=== PATIENT | female | born 1980 | race African-American/Black ===

== ENCOUNTER 2022-04-25 15:15 | Observation (INO) | payer BC ==
[2022-04-25 18:43] LABS: HEMATOCRIT 21.3 % (32.4-45.2); MEAN PLT VOLUME 8.6 fl (7.5-11.1); PLATELET COUNT 386 10^3/uL (134-434); RBC 4.02 M/mm3 (3.60-5.2); RDW 25.3 % (11.6-15.6); WHITE BLOOD COUNT 4.9 K/mm3 (4.0-10.0)
[2022-04-25 18:44] LABS: MCH 13.8 pg (25.7-33.7)
[2022-04-25 18:47] LABS: HEMOGLOBIN 5.5 GM/dL (10.7-15.3)
[2022-04-25 18:48] LABS: ADD RBC MORPHOLOGY YES
[2022-04-25 18:49] LABS: INR 1.03 (0.83-1.09)
[2022-04-25 18:52] LABS: ACTIVATED PTT 29.9 SECONDS (25.2-36.5)
[2022-04-25 19:12] LABS: ALBUMIN 3.9 g/dl (3.4-5.0); BLOOD UREA NITROGEN 9.6 mg/dL (7-18); CALCIUM 8.6 mg/dL (8.5-10.1)
[2022-04-25 19:15] LABS: CREATININE 0.8 mg/dL (0.55-1.3)
[2022-04-25 19:17] LABS: BILIRUBIN,TOTAL 0.4 mg/dL (0.2-1); TOT PROT 7.9 g/dl (6.4-8.2)
[2022-04-25 19:42] LABS: ANISOCYTOSIS 3+; MACROCYTOSIS 0
[2022-04-25] MEDS ORDERED: ACETAMINOPHEN 325 MG TABLET (FP) PO PRN (20:58)
[2022-04-25] MEDS ORDERED: DOCUSATE SODIUM 100 MG CAPSULE (FP) PO PRN (20:58)
[2022-04-26 01:41] VITALS: BMI 38.1
[2022-04-26 07:37] LABS: HEMATOCRIT 24.9 % (32.4-45.2); HEMOGLOBIN 7.3 GM/dL (10.7-15.3); MCHC 29.6 g/dl (32.0-36.0); MEAN CELL VOLUME 60.5 fl (80-96); MEAN PLT VOLUME 8.8 fl (7.5-11.1); PLATELET COUNT 339 10^3/uL (134-434); RBC 4.11 M/mm3 (3.60-5.2); RDW 33.9 % (11.6-15.6); WHITE BLOOD COUNT 5.1 K/mm3 (4.0-10.0)
[2022-04-26 07:46] LABS: MCH 17.9 pg (25.7-33.7)
[2022-04-26 08:05] LABS: BLOOD UREA NITROGEN 8.6 mg/dL (7-18); CALCIUM 8.3 mg/dL (8.5-10.1)
[2022-04-26] MEDS ORDERED: ALBUTEROL SO4 2.5/IPRATROPIUM 0.5 INH SOL 3 ML VIAL.NEB. NEB PRN (08:06)
[2022-04-26 08:09] LABS: CREATININE 0.7 mg/dL (0.55-1.3)
[2022-04-26] MEDS ORDERED: CEFTRIAXONE 1 GM in DEXTROSE 5%-WATER - 50 ML IVPB SCH (10:00)
[2022-04-26] MEDS ORDERED: AZITHROMYCIN 500 MG TABLET PO SCH (10:00)
[2022-04-26 14:36] VITALS: BP 126/73; PULSE 68; RESP 18; TEMP 98.2
== END 2022-04-26 17:34 | disposition home or self-care (01) ==
LOC: JER 15:15 → JERBED 20:45 → UNDOADMOB 20:45 → INTOOBSV 20:45 → JERBED 23:42 → J6S 23:42 → JERBED 04-26 14:26
PROVIDERS: ADMIT Internal Medicine; ATTEND Internal Medicine
PROC: 3E03329 Introduction of Other Anti-infective into Peripheral Vein, Percutaneous Approach (ICD-10-PCS; principal; 2022-04-26)
PROC: 30233N1 Transfusion of Nonautologous Red Blood Cells into Peripheral Vein, Percutaneous Approach (ICD-10-PCS; 2022-04-26)
DX: D64.9 Anemia, unspecified (principal); N93.9 Abnormal uterine and vaginal bleeding, unspecified; D25.9 Leiomyoma of uterus, unspecified; E66.8 Other obesity; Z68.38 Body mass index [BMI] 38.0-38.9, adult; R06.2 Wheezing
CPT/HCPCS: 0241U-QW; 36415; 36430; 36511; 71046-TC-FY; 76830-TC; 80048; 80053; 84484; 84703; 85025; 85027; 85610; 85730; 86850; 86900; 86901; 86922; 93005; 93010; 93306-TC; 96365; 99285-25; G0378; P9038; P9058

== ENCOUNTER 2022-06-19 04:04 | Inpatient (IN) | payer BC ==
[2022-06-17 14:25] VITALS: BMI 37.9
[~2022-06-19 04:04] MED LIST: ceFAZolin SODIUM 1 GM VIAL IVPB ONE
[2022-06-19] MEDS ORDERED: CEFAZOLIN SODIUM 2 GM in DEXTROSE 5%-WATER 100 ML IVPB ONE (07:00)
[2022-06-19] MEDS ORDERED: ceFAZolin SODIUM 1 GM VIAL ONE ×2 (07:09→08:35)
[2022-06-19] MEDS ORDERED: PROPOFOL 20 ML ONE (07:18)
[2022-06-19] MEDS ORDERED: LIDOCAINE HCL/PF 2% SDV 5ML VIAL ONE (07:18)
[2022-06-19] MEDS ORDERED: MIDAZOLAM HCL 2 MG/2 ML SINGLE DOSE VIAL ONE (07:19)
[2022-06-19] MEDS ORDERED: ROCURONIUM BROMIDE 50 MG/5 ML SYRINGE ONE (07:19)
[2022-06-19] MEDS ORDERED: SUCCINYLCHOLINE CHLORIDE 200 MG/10 ML SYRINGE ONE (07:19)
[2022-06-19] MEDS ORDERED: TRANEXAMIC ACID 1000 MG/10 ML VIAL IVPUSH ONE (08:00)
[2022-06-19] MEDS ORDERED: ceFAZolin SODIUM 1 GM VIAL IVPB ONE (08:35)
[2022-06-19] MEDS ORDERED: DEXAMETHASONE SOD PHOSPHATE 4 MG/1 ML VIAL ONE (08:35)
[2022-06-19] MEDS ORDERED: KETOROLAC TROMETHAMINE 30 MG/1 ML VIAL ONE (09:45)
[2022-06-19] MEDS ORDERED: ONDANSETRON 4 MG/2 ML VIAL ONE (09:45)
[2022-06-19] MEDS ORDERED: NEOSTIGMINE METHYLSULFATE 0.5 MG/1 ML - 10 ML MDV ONE (09:46)
[2022-06-19] MEDS ORDERED: GLYCOPYRROLATE 0.2 MG/1 ML VIAL ONE (09:46)
[2022-06-19] MEDS ORDERED: ONDANSETRON 4 MG/2 ML VIAL IVPUSH PRN ×3 (10:41→10:45)
[2022-06-19] MEDS ORDERED: ACETAMINOPHEN 1000 MG/100 ML BAG IVPB ONE (10:41)
[2022-06-19] MEDS ORDERED: PROMETHAZINE HCL 25 MG/1 ML VIAL IVPB PRN (10:41)
[2022-06-19] MEDS ORDERED: DOCUSATE SODIUM 100 MG CAPSULE (FP) PO PRN (10:45)
[2022-06-19] MEDS ORDERED: oxyCODONE HCL 5 MG TABLET PO PRN ×2 (10:45)
[2022-06-19] MEDS ORDERED: BISACODYL 5 MG TABLET.DR (FP) PO PRN (10:45)
[2022-06-19] MEDS ORDERED: LACTATED RINGERS SOLUTION 1,000 ML IV SCH (10:45)
[2022-06-19] MEDS ORDERED: ACETAMINOPHEN 1000 MG/100 ML BAG IVPB SCH (10:51)
[2022-06-19] MEDS ORDERED: ALBUTEROL SO4 HFA INHALER IH PRN ×3 (10:53→11:55)
[2022-06-19] MEDS ORDERED: SODIUM CHLORIDE 1,000 ML IV SCH (11:00)
[2022-06-19] MEDS ORDERED: morphine CARPU-JECT 2 MG/1 ML DISP.SYRIN IVPUSH PRN (11:01)
[2022-06-19] MEDS: IBUPROFEN 800 MG/8 ML IJ IVPB SCH ×2 (13:57→20:58)
[2022-06-19 14:06] VITALS: RESP 18
[2022-06-19 14:27] LABS: HIV INTERPRETATION NEGATIVE (NEGATIVE)
[2022-06-19] MEDS ORDERED: CEFAZOLIN 1 GM in DEXTROSE 5%-WATER - 50 ML IVPB SCH (16:00)
[2022-06-19] MEDS: ACETAMINOPHEN 1000 MG/100 ML BAG IVPB SCH ×2 (16:14→23:18)
[2022-06-19 20:58] VITALS: TEMP 98.1
[2022-06-19] MEDS: SIMETHICONE 80 MG TAB.CHEW (FP) PO PRN (20:58)
[2022-06-19] MEDS ORDERED: diphenhydrAMINE HCL 25 MG CAPSULE (FP) PO PRN (21:20)
[2022-06-19] MEDS: CEFAZOLIN 1 GM in DEXTROSE 5%-WATER - 50 ML IVPB SCH (22:20)
[2022-06-20 05:27] VITALS: BP 108/68; PULSE 84
[2022-06-20] MEDS: ACETAMINOPHEN 1000 MG/100 ML BAG IVPB SCH (05:46)
[2022-06-20] MEDS: SIMETHICONE 80 MG TAB.CHEW (FP) PO PRN ×2 (05:48→10:03)
[2022-06-20] MEDS: CEFAZOLIN 1 GM in DEXTROSE 5%-WATER - 50 ML IVPB SCH (06:00)
[2022-06-20] MEDS: IBUPROFEN 800 MG/8 ML IJ IVPB SCH (06:20)
[2022-06-20 06:28] LABS: HEMATOCRIT 29.8 % (32.4-45.2); HEMOGLOBIN 9.4 GM/dL (10.7-15.3); MCHC 31.4 g/dl (32.0-36.0); MEAN CELL VOLUME 66.8 fl (80-96); MEAN PLT VOLUME 9.3 fl (7.5-11.1); PLATELET COUNT 291 10^3/uL (134-434); RBC 4.47 M/mm3 (3.60-5.2); WHITE BLOOD COUNT 9.5 K/mm3 (4.0-10.0)
[2022-06-20 06:41] LABS: POTASSIUM 4.1 mmol/L (3.5-5.1)
[2022-06-20 06:42] LABS: CALCIUM 8.5 mg/dL (8.5-10.1)
[2022-06-20 06:43] LABS: BLOOD UREA NITROGEN 6.8 mg/dL (7-18)
[2022-06-20 06:46] LABS: CREATININE 0.7 mg/dL (0.55-1.3)
[2022-06-20] MEDS ORDERED: ENOXAPARIN NA (PORCINE) 40 MG/0.4 ML DISP.SYRIN SQ SCH (10:00)
[2022-06-20] MEDS ORDERED: IBUPROFEN 600 MG TABLET (FP) PO PRN (10:45)
== END 2022-06-20 18:00 | disposition home or self-care (01) | DRG 743 ==
LOC: J2C 04:04 → J3W 13:44
PROVIDERS: ADMIT Specialist; ATTEND Specialist
PROC: 0UT70ZZ Resection of Bilateral Fallopian Tubes, Open Approach (ICD-10-PCS; 2022-06-19)
PROC: 0DNW0ZZ Release Peritoneum, Open Approach (ICD-10-PCS; 2022-06-19)
PROC: 0UT90ZZ Resection of Uterus, Open Approach (ICD-10-PCS; principal; 2022-06-19 08:00)
DX: D25.9 Leiomyoma of uterus, unspecified (principal); N92.1 Excessive and frequent menstruation with irregular cycle; D50.9 Iron deficiency anemia, unspecified; K66.0 Peritoneal adhesions (postprocedural) (postinfection)
CPT/HCPCS: 36415; 80048; 81025; 84460; 85027; 86803; 87340; 87389; 88302-TC; 88307-TC; 94010; 94760